=== PATIENT | male | born 1955 | race Caucasian/White ===

== ENCOUNTER 2024-04-28 06:55 | Observation (INO) ==
--- NOTE | 2024-03-24 15:48 | PAT Medication Instructions ---
Medication Instructions Date of Service March 24, 2024 Home Medications alfuzosin 10 mg tablet,extended release 24 hr 10 mg PO HS allopurinol 300 mg tablet 300 mg PO QAM amino acids (Amino Acid capsule) 1 cap PO UD aspirin 81 mg tablet,delayed release 81 mg PO Q2D calcium carbonate 1,000 mg PO QAM capsaicin 0.035 % topical cream 1 applic topical TID PRN joint pain carboxymethylcellulose sodium 1 % eye liquid gel drops (Refresh Liquigel) 1 drp ophthalmic (eye) UD PRN Dry Eyes cholecalciferol (vitamin D3) 50 mcg (2,000 unit) capsule (Vitamin D3) 50 mcg PO DAILY coQ10 (ubiquinol) 100 mg capsule 100 mg PO DAILY docusate sodium 100 mg capsule 200 mg PO BID PRN Constipation doxepin 50 mg capsule 50 mg PO HS fluocinonide 0.05 % topical cream 1 applic topical UD PRN waistline rash fluticasone propionate 50 mcg/actuation nasal spray,suspension 1 spray intranasal BID ketotifen fumarate 0.025 % (0.035 %) eye drops 1 drp ophthalmic (eye) DAILY lidocaine 5 % topical patch 1 patch topical HS PRN joint pain lorazepam 0.5 mg tablet 0.5 - 1 mg PO BID meloxicam 15 mg tablet 15 mg PO QAM omeprazole 20 mg tablet,delayed release 20 mg PO HS pravastatin 40 mg tablet 40 mg PO HS riboflavin (vitamin B2) 100 mg tablet (Vitamin B-2) 100 mg PO DAILY sildenafil 100 mg tablet 100 mg PO DAILY PRN Erectile Dysfunction verapamil 180 mg tablet,extended release 180 mg PO BID vit C 250 mg-vit E 90 mg-zinc 40 mg-copper 1 [id number]-saktqn-hzxqex capsule (PreserVision AREDS-2) 2 tab PO DAILY Continue as directed lidocaine 5 % topical patch 1 patch topical HS PRN joint pain (avoid placement near surgery site prior to surgery) ASK your surgeon for instructions meloxicam 15 mg tablet 15 mg PO QAM amino acids (Amino Acid capsule) 1 cap PO UD ASK your prescriber and surgeon aspirin 81 mg tablet,delayed release 81 mg PO Q2D STOP taking 2 weeks before surgery (or as soon as possible if surgery is within 2 weeks) coQ10 (ubiquinol) 100 mg capsule 100 mg PO DAILY vit C 250 mg-vit E 90 mg-zinc 40 mg-copper 1 po-fgnkkb-cypwfa capsule (PreserVision AREDS-2) 2 tab PO DAILY STOP taking 24 hours before surgery capsaicin 0.035 % topical cream 1 applic topical TID PRN joint pain fluocinonide 0.05 % topical cream 1 applic topical UD PRN waistline rash DO NOT take the morning of surgery calcium carbonate 1,000 mg PO QAM cholecalciferol (vitamin D3) 50 mcg (2,000 unit) capsule (Vitamin D3) 50 mcg PO DAILY docusate sodium 100 mg capsule 200 mg PO BID PRN Constipation riboflavin (vitamin B2) 100 mg tablet (Vitamin B-2) 100 mg PO DAILY sildenafil 100 mg tablet 100 mg PO DAILY PRN Erectile Dysfunction Take morning of surgery With a small sip of water, OTHERWISE NOTHING TO EAT OR DRINK AFTER MIDNIGHT: allopurinol 300 mg tablet 300 mg PO QAM carboxymethylcellulose sodium 1 % eye liquid gel drops (Refresh Liquigel) 1 drp ophthalmic (eye) UD PRN Dry Eyes (if needed) fluticasone propionate 50 mcg/actuation nasal spray,suspension 1 spray intranasal BID ketotifen fumarate 0.025 % (0.035 %) eye drops 1 drp ophthalmic (eye) DAILY lorazepam 0.5 mg tablet 0.5 - 1 mg PO BID verapamil 180 mg tablet,extended release 180 mg PO BID Take evening before surgery alfuzosin 10 mg tablet,extended release 24 hr 10 mg PO HS carboxymethylcellulose sodium 1 % eye liquid gel drops (Refresh Liquigel) 1 drp ophthalmic (eye) UD PRN Dry Eyes (if needed) docusate sodium 100 mg capsule 200 mg PO BID PRN Constipation (if needed) doxepin 50 mg capsule 50 mg PO HS fluticasone propionate 50 mcg/actuation nasal spray,suspension 1 spray intranasal BID lorazepam 0.5 mg tablet 0.5 - 1 mg PO BID omeprazole 20 mg tablet,delayed release 20 mg PO HS pravastatin 40 mg tablet 40 mg PO HS verapamil 180 mg tablet,extended release 180 mg PO BID Other Notes If you have any questions please call us at [phone] or [phone] or [phone] or [phone]
--- NOTE | 2024-04-03 11:15 | Anesthesiology Consultation ---
Date of Service April 03, 2024 Assessment & Plan (1) Encounter for pre-operative examination: - spinal cord stimulator: patient aware to bring remote to hospital DOS. - Outpatient joint assessment: Patient is currently scheduled for inpatient pathway. If re-evaluated and patient/surgeon requests outpatient pathway, patient is not advised candidate for outpatient joint program per discussion with Dr. Carreon. We discussed case in detail and he advised patient is acceptable to proceed, advised faxing CXR to PCP for continuity of care. Chart Review Chart Review: Acceptable Risk for Surgery and Patient seen in Pre Admission Kendra ting Teaching & Discussion Pre-Anesthesia Teaching/Discussion Notes: Instructed NPO after midnight before surgery, except medications with 15 cc of water. Medication instructions provided according to the PAT guidelines. History Surgery Operation Date: 04/28/24 08:50 Proposed Procedures p Left Total Hip Arthroplasty - Kofi Tanner MD Height/Weight Height: 6 ft Weight: 100.8 kg Allergies Allergy/AdvReac Type Severity Reaction Status Date / Time buspirone AdvReac Mild ERECTILE Verified 03/24/24 11:03 DYSFUNCTION baclofen AdvReac Unknown Vomiting Verified 03/24/24 11:03 citalopram AdvReac Unknown erectile Verified 03/24/24 11:03 dysfuntion Medications Home Medications Medication Instructions Recorded Confirmed Last Taken alfuzosin 10 mg tablet,extended 10 mg PO HS 03/24/24 03/24/24 Unknown release 24 hr allopurinol 300 mg tablet 300 mg PO QAM 03/24/24 03/24/24 Unknown amino acids (Amino Acid capsule) 1 cap PO UD 03/24/24 03/24/24 Unknown aspirin 81 mg tablet,delayed 81 mg PO Q2D 03/24/24 03/24/24 Unknown release calcium carbonate 1,000 mg PO QAM 03/24/24 03/24/24 Unknown capsaicin 0.035 % topical cream 1 applic topical TID PRN joint pain 03/24/24 03/24/24 Unknown carboxymethylcellulose sodium 1 % 1 drp ophthalmic (eye) UD PRN Dry 03/24/24 03/24/24 Unknown eye liquid gel drops (Refresh Eyes Liquigel) cholecalciferol (vitamin D3) 50 50 mcg PO DAILY 03/24/24 03/24/24 Unknown mcg (2,000 unit) capsule (Vitamin D3) coQ10 (ubiquinol) 100 mg capsule 100 mg PO DAILY 03/24/24 03/24/24 Unknown docusate sodium 100 mg capsule 200 mg PO BID PRN Constipation 03/24/24 03/24/24 Unknown doxepin 50 mg capsule 50 mg PO HS 03/24/24 03/24/24 Unknown fluocinonide 0.05 % topical cream 1 applic topical UD PRN waistline 03/24/24 03/24/24 Unknown rash fluticasone propionate 50 1 spray intranasal BID 03/24/24 03/24/24 Unknown mcg/actuation nasal spray,suspension ketotifen fumarate 0.025 % (0.035 1 drp ophthalmic (eye) DAILY 03/24/24 03/24/24 Unknown %) eye drops lidocaine 5 % topical patch 1 patch topical HS PRN joint pain 03/24/24 03/24/24 Unknown lorazepam 0.5 mg tablet 0.5 - 1 mg PO BID 03/24/24 03/24/24 Unknown meloxicam 15 mg tablet 15 mg PO QAM 03/24/24 03/24/24 Unknown omeprazole 20 mg tablet,delayed 20 mg PO HS 03/24/24 03/24/24 Unknown release pravastatin 40 mg tablet 40 mg PO HS 03/24/24 03/24/24 Unknown riboflavin (vitamin B2) 100 mg 100 mg PO DAILY 03/24/24 03/24/24 Unknown tablet (Vitamin B-2) sildenafil 100 mg tablet 100 mg PO DAILY PRN Erectile 03/24/24 03/24/24 Unknown Dysfunction verapamil 180 mg tablet,extended 180 mg PO BID 03/24/24 03/24/24 Unknown release vit C 250 mg-vit E 90 mg-zinc 40 2 tab PO DAILY 03/24/24 03/24/24 Unknown mg-copper 1 ej-bomozo-saceas capsule (PreserVision AREDS-2) Past Medical History Medical History (Updated 04/06/24 @ 08:45 by Krysta Okeefe PA-C) Anxiety DDD (degenerative disc disease), lumbar Enlarged prostate GERD (gastroesophageal reflux disease) controlled, stable per pt Glaucoma borderline per patient and his Hearing loss hearing aids bilat High urine uric acid level hx-h/o kidney stones; denies h/o gout History of cluster headache History of colon polyps History of COVID-19 (2020) hx covid pneumonia, no hx hospitalization-symptoms resolved History of depression History of kidney stones (2019) History of syncope (2016) no findings upon testing and no further occurrences. attributed to orthostatic hypotension per patient HTN (hypertension) controlled, stable per pt Hyperlipidemia borderline Macular degeneration borderline Osteoarthritis Spinal stenosis Tinnitus of both ears Patient denies h/o stroke, seizures, heart attack, heart failure, DM, blood clots/DVTs or blood transfusions. Exercise / Class Metabolic Activity II 4-5 Yardwork/Stairs/Walk up hill (ambulates with cane, denies chest discomfort or shortness of breath with one flight of stairs) Past Surgical History Surgical History History of cardiac cath approx 1998 for [facility] [place]. [facility]. No findings/no stent(s). Pt reports he was told: anxiety and angina. No problems since. History of hemorrhoidectomy History of left cataract surgery History of lithotripsy History of right cataract surgery History of testicular surgery (11/2007) took part of it off History of urologic surgery for kidney stone. S/P insertion of spinal cord stimulator (03/11/19) Malhotra 01/17/2022 hx generator change. Past Anesthesia History No Hx of Anesthesia Complications and No Family Hx of Anesthesia Complications History of PONV No Hx of PONV and No Hx of Motion Sickness Social History Smoking Status: Never smoker Do You Dip or Chew Tobacco: No (hx quit 5.5 yr ago-using alternative corn syrup and peach juice-advised) Alcohol type: beer, wine and hard liquor alcohol intake frequency: 3 or more drinks per day Hx Substance Use: No substance use type: does not use Review of Systems Snoring, denies witnessed apneas. Reports negative sleep study several years ago. Patient denies chest pain, shortness of breath, dyspnea on exertion, reflux, fever, chills, cough, wheezing, or palpitations. Physical Exam Vital Signs Vitals BP 145/80 P 66 TEMP 98.1 SP02 94% on RA RESP 18 Physical Patient resting comfortably in chair in no acute distress, alert and oriented, responding appropriately throughout visit Full cervical extension range of motion without pain TMD 3.5 finger breadths Mallampati Score 2 Dentition: edentulous, full upper and lower dentures Lungs: normal respiratory effort. Good air movement, clear throughout to auscultation, no adventitious breath sounds Cardiac: regular rate and rhythm, no murmurs noted Carotid arteries: negative bruit bilat Lab Results Anesthesia Preop Results Results Anesthesia Widget: WBC 5.84 K/ul (4.8-10.8) 04/03/24 Hgb 14.5 g/dl (14.0-18.0) 04/03/24 Hct 41.7 % (42.0-52.0) L 04/03/24 Plt 144 K/uL (130-400) 04/03/24 Na 140 mmol/L (136-145) 04/03/24 K 4.0 mmol/L (3.5-5.1) 04/03/24 Cl 107 mmol/L (98-107) 04/03/24 CO2 27 mmol/L (21-32) 04/03/24 BUN 16 mg/dl (6-23) 04/03/24 Creat 1.04 mg/dl (0.6-1.4) 04/03/24 Glucose Level 102 mg/dl (70-99(Fasting)) H 04/03/24 PT 10.8 Seconds (9.0-12.0) 04/03/24 PTT 25 Seconds (21-31) 04/03/24 INR 1.0 (0.9-1.1) 04/03/24 Blood Type A Positive 04/03/24 Antibody Screen NEGATIVE 04/03/24 Testing Electrocardiogram Date: 04/03/24 NSR, rate 66 bpm Chest X-Ray Date: 04/03/24 1. Mildly hyperinflated lung quinonez are seen bilaterally, suggestive of COPD. 2. Mild bilateral lower lung zone interstitial lung shadowing, more on the right side, concerning mild/early interstitial lung diseases. HRCT correlation is suggested. 3. No definite consolidation or pleural effusion is seen. 4. Mild degenerative changes in the thoracic spine.
--- NOTE | 2024-04-24 17:30 | History & Physical Report ---
Date of Service April 24, 2024 Assessment & Plan (1) Bilateral hip joint arthritis: Gentleman with a long history of back problems with advanced bilateral hip arthritis. Certainly this explains some of his pain but he is got significant pain from his back as well. At that is a bit more difficult problem to manage. That he is got a dorsal column stimulator in place. He would like to have both of his hips fixed. Plan we talked about treatment options. We can proceed with left total hip replacement. The risks Mente this procedure explained and he understands. Informed consent is obtained. Will use aspirin for DVT prophylaxis. Want to be careful to avoid his dorsal column stimulator wires on the left side. He is cleared to be discharged home using [facility] health program. (2) Lumbar spondylosis: (3) Spinal stenosis: (4) Hyperlipidemia: (5) HTN (hypertension): (6) GERD (gastroesophageal reflux disease): History of Present Illness Chief Complaint: . Bilateral hip pain left side greater than right. Primary Care Provider: NO PCP . 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 He comes specifically surgical treatment of his hips. Got a long history of back Pozniak has a dorsal column pain stimulator in place. Over the years she increased pain discomfort both hips. This is gotten significantly worse over the past 2 years she describes buttock pain lateral hip pain groin pain thigh pain. He has been using a cane to get around for the past year. He uses Mobic which did not help much. He is now referred here for surgical treatment. The left left side bothers him more than the right. Allergies Allergy/AdvReac Type Severity Reaction Status Date / Time buspirone AdvReac Mild ERECTILE Verified 03/24/24 11:03 DYSFUNCTION baclofen AdvReac Unknown Vomiting Verified 03/24/24 11:03 citalopram AdvReac Unknown erectile Verified 03/24/24 11:03 dysfuntion Home Medications Medication Instructions Recorded Confirmed Type alfuzosin 10 mg tablet,extended 10 mg PO HS 03/24/24 03/24/24 History release 24 hr allopurinol 300 mg tablet 300 mg PO QAM 03/24/24 03/24/24 History amino acids (Amino Acid capsule) 1 cap PO UD 03/24/24 03/24/24 History aspirin 81 mg tablet,delayed 81 mg PO Q2D 03/24/24 03/24/24 History release calcium carbonate 1,000 mg PO QAM 03/24/24 03/24/24 History capsaicin 0.035 % topical cream 1 applic topical TID PRN joint pain 03/24/24 03/24/24 History carboxymethylcellulose sodium 1 % 1 drp ophthalmic (eye) UD PRN Dry 03/24/24 03/24/24 History eye liquid gel drops (Refresh Eyes Liquigel) cholecalciferol (vitamin D3) 50 50 mcg PO DAILY 03/24/24 03/24/24 History mcg (2,000 unit) capsule (Vitamin D3) coQ10 (ubiquinol) 100 mg capsule 100 mg PO DAILY 03/24/24 03/24/24 History docusate sodium 100 mg capsule 200 mg PO BID PRN Constipation 03/24/24 03/24/24 History doxepin 50 mg capsule 50 mg PO HS 03/24/24 03/24/24 History fluocinonide 0.05 % topical cream 1 applic topical UD PRN waistline 03/24/24 03/24/24 History rash fluticasone propionate 50 1 spray intranasal BID 03/24/24 03/24/24 History mcg/actuation nasal spray,suspension ketotifen fumarate 0.025 % (0.035 1 drp ophthalmic (eye) DAILY 03/24/24 03/24/24 History %) eye drops lidocaine 5 % topical patch 1 patch topical HS PRN joint pain 03/24/24 03/24/24 History lorazepam 0.5 mg tablet 0.5 - 1 mg PO BID 03/24/24 03/24/24 History meloxicam 15 mg tablet 15 mg PO QAM 03/24/24 03/24/24 History omeprazole 20 mg tablet,delayed 20 mg PO HS 03/24/24 03/24/24 History release pravastatin 40 mg tablet 40 mg PO HS 03/24/24 03/24/24 History riboflavin (vitamin B2) 100 mg 100 mg PO DAILY 03/24/24 03/24/24 History tablet (Vitamin B-2) sildenafil 100 mg tablet 100 mg PO DAILY PRN Erectile 03/24/24 03/24/24 History Dysfunction verapamil 180 mg tablet,extended 180 mg PO BID 03/24/24 03/24/24 History release vit C 250 mg-vit E 90 mg-zinc 40 2 tab PO DAILY 03/24/24 03/24/24 History mg-copper 1 ya-yoduen-uasucf capsule (PreserVision AREDS-2) Past Med/Surg History Problem List (Updated 04/24/24 @ 17:29 by Kofi Tanner MD) Lumbar spondylosis Encounter for pre-operative examination Bilateral hip joint arthritis Medical History Tinnitus of both ears Hearing loss hearing aids bilat Glaucoma borderline per patient and his History of syncope (2015) no findings upon testing and no further occurrences. attributed to orthostatic hypotension per patient History of kidney stones (2018) Spinal stenosis DDD (degenerative disc disease), lumbar Osteoarthritis History of depression Anxiety History of COVID-19 (2020) hx covid pneumonia, no hx hospitalization-symptoms resolved Enlarged prostate High urine uric acid level hx-h/o kidney stones; denies h/o gout History of colon polyps GERD (gastroesophageal reflux disease) controlled, stable per pt History of cluster headache Macular degeneration borderline Hyperlipidemia borderline HTN (hypertension) controlled, stable per pt Surgical History History of left cataract surgery History of right cataract surgery History of cardiac cath approx 1998 for [facility]. No findings/no stent(s). Pt reports he was told: anxiety and angina. No problems since. History of hemorrhoidectomy History of testicular surgery (11/2007) took part of it off History of urologic surgery for kidney stone. History of lithotripsy S/P insertion of spinal cord stimulator (03/11/19) Malhotra 01/17/2022 hx generator change. Social History Smoking Status: Never smoker Tobacco Type: Smokeless Tobacco (Dip or Chew) Do You Dip or Chew Tobacco: No (hx quit 5.5 yr ago-using alternative corn syrup and peach juice-advised); Hx Substance Use: No Preferred Language: Kosovan Communication Ability: Effective Hospitality Job Titles Required: No Beliefs That Will Affect Care: None Current Living Situation: Spouse Feels Safe at Home: Yes Assistive Devices: Cane, Denture - Upper, Denture - Lower, Hearing Aid - Bilateral and Other Assistive Devices Comment: spinal cord stimulator, instructed to bring remote day of pat and surgery. Review of Systems All systems reviewed & are unremarkable except as noted in HPI & below. Physical Exam . Physical examination reveals a thin healthy-appearing male. Examination of both hips reveal patient walks the use of a cane. Leg lengths are pretty equal. Does have pain and stiffness of any type of hip motion more the left than the right. He can internally rotate to neutral on both sides. No knee effusion. He is neurologically intact. Constitutional WD/WN, vitals as above Neck trachea midline, no thyromegaly Respiratory normal respiratory effort, lungs clear to auscultation Cardiovascular RRR, no murmur, no edema Gastrointestinal (Abdomen) normal bowel sounds, soft, nontender, no hepatosplenomegaly Results & Data Results & Data Laboratory Results . Diagnostic Findings . X-rays of both hips were reviewed. Shows a moderate to advanced hip arthritis. Got fairly concentric disease on both sides. Is got some superior joint space but is got central disease as well. Both hips are pretty equal. He is got a dorsal column stimulator in place. PG Care Time/CCT Total # of Minutes Spent Total Time Spent with Patient: Total time spent is greater than 50% in coordination of care (as documented) at patient's floor/unit and/or counseling patient: Coding Level of Care Code None Diagnoses Bilateral hip joint arthritis M16.0 Lumbar spondylosis M47.816 Spinal stenosis M48.00 Hyperlipidemia E78.5 HTN (hypertension) I10 GERD (gastroesophageal reflux disease) K21.9
[~2024-04-28 06:55] MED LIST: BUPIVACAINE 0.5 % 5 MG/1 ML PF 10ML VIAL ONE
--- NOTE | 2024-04-28 06:57 | History & Physical Bridge Note ---
Date of Service April 28, 2024 History & Physical Bridge Note I have examined the patient, reviewed the History & Physical and in the interval since the performance of the History & Physical I have noted the following changes of clinical significance: no changes noted
[2024-04-28] MEDS: ACETAMINOPHEN 500 MG TAB PO SCH ×2 (07:20→14:44)
[2024-04-28] MEDS: CeleBREX 200 MG CAP PO SCH (07:20)
[2024-04-28] MEDS: LR 500ML BOLUS, THEN 15ML/HR IV SCH (07:20)
[2024-04-28] MEDS: dexAMETHasone**PF** 10 MG/ML VIAL IV SCH (07:21)
[2024-04-28] MEDS: METOCLOPRAMIDE HCL 10 MG TABLET PO SCH (07:21)
[2024-04-28] MEDS: FAMOTIDINE 20 MG TAB PO SCH (07:21)
[2024-04-28] MEDS: LR 60ML/HR IV SCH (07:21)
[2024-04-28] MEDS ORDERED: MIDAZOLAM HCL 1 MG/ML 2ML VIAL ONE (07:37)
[2024-04-28] MEDS ORDERED: LIDOCAINE 2% 2 ML VIAL/AMP(20MG/ML) INFIL ONE (07:38)
[2024-04-28] MEDS ORDERED: ONDANSETRON INJ 2 MG/ML 2 ML VIAL ONE (07:38)
[2024-04-28] MEDS ORDERED: PROPOFOL IV EMULSION 10 MG/ML 20 ML VIAL IV ONE (07:38)
[2024-04-28] MEDS ORDERED: ePHEDrine sulfate 50 MG/ML AMP IV PRN (08:13)
[2024-04-28] MEDS ORDERED: ONDANSETRON INJ 2 MG/ML 2 ML VIAL IV PRN ×2 (08:13→12:21)
[2024-04-28] MEDS ORDERED: ATROPINE SULFATE 0.1 MG/ML 10ML SYR IV PRN (08:13)
[2024-04-28] MEDS ORDERED: fentaNYL citrate PF 100 MCG/2 ML VIAL ONE ×2 (08:36→09:15)
[2024-04-28] MEDS: ceFAZolin 2000MG 2,000 MG/15 ML SYR IV SCH ×2 (08:55→17:18)
[2024-04-28] MEDS ORDERED: ROCURONIUM BROMIDE 10 MG/ML 5 ML VIAL IV ONE (09:17)
[2024-04-28] MEDS ORDERED: HYDROmorphone INJ 2 MG/ML SYR/VIAL ONE (09:31)
[2024-04-28] MEDS: BUPIVACAINE/EPINEPHRINE 0.5% MPF 1:200,000 30 ML VIAL ONE (10:02)
--- NOTE | 2024-04-28 10:35 | Operative Report ---
PG Post Operative Report Pre & Post Diagnosis Operation Date: 04/28/24 08:50 Pre-Op Diagnosis: Left Hip Osteoarthritis Post-Op Diagnosis: Left Hip Osteoarthritis I identified the patient and participated in the time-out.: Yes Procedure Operation Date: 04/28/24 08:50 Actual Procedures p Left Total Hip Arthroplasty(Left) - Kofi Tanner MD Surgeon Kofi Tanner MD Multiple Drum Sander Daryn Mensah PA-C Estimated Blood Loss 100 Findings Consistent with Post-Op Diagnosis Operative findings were advanced left hip arthritis. He had a very stiff hip with significant small circumferential osteophytes. Moderate-sized joint effusion. He had grade 4 [id number] disease of the femoral head and acetabulum. Intraoperative findings were significantly worse than radiographic images. Specimens Left femoral head sent for pathology. Anesthesia Type General Complications none Disposition Accompanied Patient To Recovery: No Indications Patient is a 69-year-old gentleman with a long history of chronic back problems. He is also developed pain discomfort and stiffness in both hips. Is been through extensive conservative care which became less successful over time. He had a recent dorsal column stimulator placed but continued be bothered by hip pain and stiffness. X-rays show moderate arthritis but fairly concentric. Patient elected seed with left total hip arthroplasty. Description of Procedure Operative implants consist of: 1 Biomet G7 size 58 mm acetabular shell. 2. 6.5 cancellous acetabular screws 1 of 35 mm length and 1 of 30 mm length. 3. [place] hole program production specialist. 4. Highly cross-linked polyethylene liner with 58 mm outer diameter, 40 mm diameter with a keys placed inferior and posterior. 5. [place] size 12 KLA femoral stem. 6. +5/40 mm ceramic articular ball. The patient was taken to the op room, identified, placed on the operating table in the supine position. All contact areas were appropriately padded. IV antibiotics fibra anesthesia team. A general anesthetic was implemented as he had this recent dorsal column stimulator placed. The patient was then placed in the right lateral decubitus position. An axillary roll was placed. A stool Birkett position was used for positioning. The left hip and leg were then prepped and draped in usual sterile fashion. A posterolateral approach to the left hip was then performed to a curvilinear incision centered over the greater trochanter. Sharp dissection Through subcutaneous tissue dental of the IT band gluteal fascia. The IT band gluteal fascia incised longitudinally in line with skin incision. The underlying greater bursa was excised. The piriformis and extra rotators along with the posterior joint capsule then released from the posterior aspect of the hip as a single layer. The hip was internally rotated and dislocated. A femoral neck osteotomy cut was made with a Final Cut about 12 mm above the lesser trochanter. Femoral head was removed and sent for pathology. The femur was retracted anteriorly. Attention drawn the acetabulum. The acetabular labrum was excised it was fairly ossified. The pulmonary fat was excised. Sequential reaming the acetabular was then performed again with a size 47 and progressing up to a 57. I then reamed a little bit to 58 reamer and placed a 58 mm Biomet acetabular shell in about 40 degrees lateral opening and 20 degrees of anteversion. It was fixed with two 6.5 screws. Some small osteophytes removed. A trial liner was placed. Attention drawn the femur. The proximal femur was entered with cookie-cutter followed by canal finder. I then broached beginning the size 8 and progressing up to 12 we got excellent fitted to 12. We trialed the hip and the +5 articular ball provided full stability. Leg lengths appear equal. I did elect to place a keys inferior and posterior backslide his stability due to his underlying spine issues. We elect to place his implants. All trial implants were removed. An apex hole program production specialist was placed. Highly cross-linked polyethylene liner with a keys placed inferior and posterior was placed. A size 12 KLA femoral stem was impacted in position. A +5/40 mm ceramic articular ball was placed. Hip was located and once again found to be stable. Attention drawn toward closing. The wound was irrigated extensively. We did use a Betadine soak. I injected locally with 60 cc of half percent Marcaine with epinephrine. The posterior capsule and external rotators were then repaired through drill holes in the posterior trochanter with #2 Tycron suture. The IT band gluteal fascia then closed #1 PDS suture running fashion to subcutaneous tissue then closed with 2 layers of the deep layer #1 Vicryl suture in the subcutaneous tissues with 2-0 Dexon suture in a buried interrupted fashion the skin was closed with skin marisa. Leg was then cleaned and dried and a sterile dressing with Xeroform, 4 fours, ABD pad and foam tape was applied. Patient then brought out of general anesthesia and transferred to the recovery room in stable condition. Patient tolerated procedure well and there were no complications. Daryn Mensah, my physician operations administrative assistant, was present for the entire procedure. His assistance was essential and required for appropriate patient positioning, prepping and draping, surgical exposure, performing the technical details of the operation, placement the implants, closure of the wound, and placement of the sterile bandage. I attest to the content of the Intraoperative Record and any orders documented therein. Any exceptions are noted below.
--- NOTE | 2024-04-28 10:51 | XRay Report ---
XR hip 1V LT w pelvis CLINICAL HISTORY: IN PACU - Post Surgical COMPARISON: None FINDINGS: Left hip prosthesis shows no hardware complication. There is expected soft tissue gas. Ski n marisa are present laterally. There are severe degenerative changes at the right hip. IMPRESSION: Unremarkable postoperative exam. ACT 112: Negative or not required by law. Electronically signed by: Tobin Rene M.D. 04/28/2024 10:49 AM
[2024-04-28] MEDS: fentaNYL citrate PF 100 MCG/2 ML VIAL IV PRN (10:55)
[2024-04-28] MEDS ORDERED: TAMSULOSIN HCL 0.4 MG CAP PO PRN (12:21)
[2024-04-28] MEDS ORDERED: NON-FORMULARY MEDICATION (Amino Acids [Amino Acid] Capsule) PO SCH (12:21)
[2024-04-28] MEDS ORDERED: LIDOCAINE 5% 1 PATCH TD PRN (12:21)
[2024-04-28] MEDS ORDERED: DOCUSATE SODIUM 100 MG CAP PO PRN (12:21)
[2024-04-28] MEDS ORDERED: HYDROmorphone INJ 0.5 MG/0.5 ML SYR IV PRN (12:21)
[2024-04-28] MEDS ORDERED: MAGNESIUM HYDROXIDE SUSP 30 ML UDC PO PRN (12:21)
[2024-04-28] MEDS ORDERED: NON-FORMULARY MEDICATION (Sildenafil 100 mg Tablet) PO PRN (12:21)
[2024-04-28] MEDS ORDERED: METOCLOPRAMIDE HCL INJ 5 MG/ML 2 ML VIAL IV PRN (12:21)
[2024-04-28] MEDS ORDERED: ALUMINUM/MAGNESIUM SUSP 30 ML UDC PO PRN (12:21)
[2024-04-28] MEDS ORDERED: NALOXONE HCL 0.4 MG/1 ML VIAL/CARP IV PRN (12:21)
[2024-04-28] MEDS ORDERED: bisacodyL 10 MG SUPP PR PRN (12:21)
[2024-04-28] MEDS: TRANEXAMIC ACID 1,000 MG **IV Pre-op IV SCH (12:25)
--- NOTE | 2024-04-28 13:02 | Anesthesiology Progress Note ---
Date of Service April 28, 2024 Anesthesia Post Procedure Vital Signs Vital Signs: Temp Pulse Pulse Resp BP Pulse Ox O2 Del Method 04/28/24 12:10 37.0 C 73 16 157/79 H 96 Nasal Cannula 04/28/24 11:55 70 16 147/79 H 95 Room Air 04/28/24 11:40 80 16 147/80 H 95 Room Air 04/28/24 11:25 73 13 153/83 H 95 Room Air 04/28/24 11:10 72 12 157/86 H 94 Room Air 04/28/24 11:00 71 14 160/78 H 92 Room Air 04/28/24 10:50 36.3 C L 78 14 155/85 H 95 Room Air 04/28/24 10:40 81 22 158/79 H 95 Room Air 04/28/24 10:30 70 12 142/73 H 95 Oxymask 04/28/24 10:22 36.8 C 74 12 146/75 H 96 Oxymask 04/28/24 07:35 36.5 C 75 20 148/92 H 96 Room Air O2 Flow Rate 04/28/24 12:10 2 04/28/24 11:55 04/28/24 11:40 04/28/24 11:25 04/28/24 11:10 04/28/24 11:00 04/28/24 10:50 04/28/24 10:40 04/28/24 10:30 3 04/28/24 10:22 6 04/28/24 07:35 Transfer of Care Handoff Completed per policy Notes Mental Status: alert / awake / arousable and participated in evaluation Patient Amnestic to Procedure: Yes Nausea / Vomiting: adequately controlled Pain: adequately controlled Airway Patency, RR, SpO2: stable & adequate BP & HR: stable & adequate Hydration State: stable & adequate Anesthetic Complications: no major complications apparent and Pt Satisfied with anesthetic care
[2024-04-28] MEDS ORDERED: CAPSAICIN CR 0.075% 60 GM TUBE EXT PRN (13:29)
[2024-04-28] MEDS ORDERED: ARTIFICIAL TEARS OP PRN (13:29)
[2024-04-28] MEDS ORDERED: BETAMETHASONE DIP AUG (DIPROLENE) 0.05% CR 15 GM TUBE EXT PRN (13:32)
[2024-04-28] MEDS ORDERED: LORazepam 0.5 MG TAB PO PRN (13:40)
[2024-04-28] MEDS ORDERED: ACETAMINOPHEN 500 MG TAB PO SCH (14:00)
[2024-04-28] MEDS: KETOROLAC TROMETHAMINE 15 MG/ML VIAL IV SCH (14:44)
[2024-04-28] MEDS: TRANEXAMIC ACID / 0.7% NACL 1,000 MG/100 ML BAG IV SCH (17:18)
[2024-04-28] MEDS: ASCORBIC ACID 500 MG TAB PO SCH (17:18)
[2024-04-28] MEDS: PANTOprazole 40 MG TAB PO SCH (20:06)
[2024-04-28] MEDS: TAMSULOSIN HCL 0.4 MG CAP PO SCH (20:06)
[2024-04-28] MEDS: VERAPAMIL HCL 180 MG TABCR PO SCH (20:06)
[2024-04-28] MEDS: FLUTICASONE PROPIONATE NA SPR 16 GM BTL NAE SCH (20:07)
[2024-04-28] MEDS: DOCUSATE SODIUM 100 MG CAP PO SCH (20:07)
[2024-04-28] MEDS: SENNA 8.6 MG TAB PO SCH (20:07)
[2024-04-28] MEDS: PRAVASTATIN SOD 40 MG TAB PO SCH (20:07)
[2024-04-28] MEDS: DOXEPIN HCL 50 MG CAPSULE PO SCH (20:07)
[2024-04-28] MEDS: LORazepam 0.5 MG TAB PO SCH (20:07)
[2024-04-28] MEDS: ASPIRIN 81 MG ECTAB PO SCH (20:07)
[2024-04-28] MEDS ORDERED: SENNA 8.6 MG TAB PO SCH (21:00)
[2024-04-29] MEDS: traMADol HCL 50 MG TABLET PO PRN (00:16)
[2024-04-29 06:20] LABS: Basophils # (auto) 0.01 K/uL (0.00-0.20); Basophils % (auto) 0.1 %; Hematocrit (blood only) 30.2 % (42.0-52.0); Hemoglobin 10.4 g/dl (14.0-18.0); Immature Granulocytes # (auto) 0.06 K/uL (0.01-0.20); Immature Granulocytes % (auto) 0.6 %; Lymphocytes # (auto) 0.71 K/uL (1.20-3.40); Lymphocytes % (auto) 7.4 %; Mean Corpuscular Hemoglobin 31.8 pg (25.0-34.0); Mean Corpuscular Hgb Conc 34.4 g/dL (32.0-36.0); Mean Corpuscular Volume 92.4 fL (80.0-100.0); Mean Platelet Volume 10.3 fL (9.4-12.4); Monocytes # (auto) 0.84 K/uL (0.11-0.59); Monocytes % (auto) 8.8 %; Neutrophils # (auto) 7.93 K/uL (1.40-6.50); Neutrophils % (auto) 83.1 %; Platelet Count 148 K/uL (130-400); RDW Coefficient of Variation 13.5 % (11.5-14.5); Red Blood Count 3.27 M/uL (4.70-6.10); White Blood Count 9.55 K/ul (4.8-10.8)
[2024-04-29 06:36] LABS: BUN Creatinine Ratio 22.2 (10-20); Calcium 8.6 mg/dl (8.6-10.3); Creatinine Clr Calc Pharmacy 62.6 ml/min
[2024-04-29] MEDS: dexAMETHasone 10 MG in SYRINGE 0 ML IV SCH (07:41)
[2024-04-29] MEDS: CEROVITE ADV FORMULA TAB PO SCH (07:42)
[2024-04-29] MEDS: CALCIUM CARBONATE 1250MG TAB PO SCH (07:42)
[2024-04-29] MEDS: allopurinoL 300 MG TAB PO SCH (07:42)
[2024-04-29] MEDS: CHOLECALCIFEROL 25 MCG (1000 UNITS) TAB PO SCH (07:42)
[2024-04-29] MEDS ORDERED: NON-FORMULARY MEDICATION (Riboflavin (Vitamin B2) [Vitamin B-2] 100 mg Tablet) PO SCH (09:00)
[2024-04-29] MEDS ORDERED: MULTIVITAMIN TAB PO SCH (09:00)
[2024-04-29] MEDS ORDERED: NON-FORMULARY MEDICATION (Coq10 (Ubiquinol) 100 mg Capsule) PO SCH (09:00)
[2024-04-29] MEDS ORDERED: TAMSULOSIN HCL 0.4 MG CAP PO SCH (09:00)
--- NOTE | 2024-04-29 09:28 | Orthopedic Progress Note ---
Date of Service April 29, 2024 Assessment & Plan (1) S/P total left hip arthroplasty: He was seen and examined by Dr. Tanner Pain controlled now. PT/OT wbat, total hip precautions dvt prophylaxis: teds, scd's, aspirin d/c planning: home with home health today after therapy Subjective . 69 year old patient POD 1 from left karen. Had a rough night due to pain but seems improved now. Tachycardic this morning, denies chest pain or shortness of breath. No other complaints. Review of Systems All systems reviewed & are unremarkable except as noted in HPI & below. Physical Exam . alert and oriented. NAD. Heart rate 108 this morning. Otherwise, VSS Left hip: dressing clean, dry, intact. Able to dorsiflex and plantarflex. NVI. Sitting in bedside chair. Results & Data Results & Data Laboratory Results . Diagnostic Findings . PG Care Time/CCT Total # of Minutes Spent Total Time Spent with Patient: Total time spent is greater than 50% in coordination of care (as documented) at patient's floor/unit and/or counseling patient: Coding Level of Care Code 09272 Post Operative Follow-Up Diagnoses S/P total left hip arthroplasty Z96.642
--- NOTE | 2024-05-04 06:34 | Discharge Summary ---
Date of Service May 04, 2024 Admission HPI (Per Admitting) . 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 He comes specifically surgical treatment of his hips. Got a long history of back Pozniak has a dorsal column pain stimulator in place. Over the years she increased pain discomfort both hips. This is gotten significantly worse over the past 2 years she describes buttock pain lateral hip pain groin pain thigh pain. He has been using a cane to get around for the past year. He uses Mobic which did not help much. He is now referred here for surgical treatment. The left left side bothers him more than the right. Admission Exam (Per Admitting) . Physical examination reveals a thin healthy-appearing male. Examination of both hips reveal patient walks the use of a cane. Leg lengths are pretty equal. Does have pain and stiffness of any type of hip motion more the left than the right. He can internally rotate to neutral on both sides. No knee effusion. He is neurologically intact. Principal Diagnosis Same as "Discharge Diagnosis" noted below under Discharge Instructions. Discharge Exam . alert and oriented. NAD. Heart rate 108 this morning. Otherwise, VSS Left hip: dressing clean, dry, intact. Able to dorsiflex and plantarflex. NVI. Sitting in bedside chair. Discharge Data Procedures Performed Operation Date: 04/28/24 08:50 Actual Procedures p Left Total Hip Arthroplasty(Left) - Kofi Tanner MD Hospital Course (1) S/P total left hip arthroplasty: This is a 69 year old patient admitted on 04/28/24 and underwent total hip arthroplasty. He tolerated the procedure well and there were no complications. Transferred to the PACU post op and later to the orthopedic floor for further care. He was given ancef for antibiotic prophylaxis. He was also given RANJIT stockings, SCDs, and aspirin for DVT prophylaxis. Hemoglobin, hematocrit, and vital signs were monitored during his hospital stay and remained stable. Did not require any blood transfusions. There were no complications during his hospital stay. By post op day #1 the patient was tolerating a regular diet, pain was reasonably controlled with oral pain medicine, and he was participating in physical therapy. On post op day #1 the patient was discharged home and set up with home health care. He was given printed discharge instructions including prescriptions for extra strength tylenol, aspirin, zofran, senokot, flomax, and tramadol. Continue hip precautions. Continue physical therapy, weight bearing as tolerated. Continue RANJIT stockings. Follow up approximately 2 weeks post op or sooner if there are problems or concerns. PG Care Time/CCT Total # of Minutes Spent Total Time Spent with Patient: Total time spent is greater than 50% in coordination of care (as documented) at patient's floor/unit and/or counseling patient: Discharge Plan Discharge Items Patient Disposition: Home - Home Health Services Reason For Visit: Left Hip Osteoarthritis Discharge Diagnosis: Left Hip Replacement Activity: Per Instructions section Activity Comment: Follow/Obey hip precautions at all times. Weightbearing: Full weightbearing Weightbearing Comment: Weghtbear as tolerated obeying hip precautions at all times. Non-emergency contact: Surgeon Call non-emergency contact if: you have any medication questions Follow-up/Referrals: PCP,NO [Physician] - Diet: Regular Addtl Attending Provider Instructions: ACTIVITY RECOMMENDATIONS: Diet: * You may resume previous diet. Physical Therapy: * Aggressive physical therapy is not usually needed. You will learn to take care of yourself safely and walk. * Follow the "Hip Precautions Instructions." * In some cases, the social contact worker at the hospital will arrange to have a therapist come to your house for the first couple of weeks to help you learn these skills. * You need to practice on your own or with the help of a family member as needed. * When you learn these skills, most of the therapy can be done on your own. Home Exercise: * You were shown a series of exercises in the hospital. Do these exercises three to four times each day including the exercises you were shown in physical therapy. Walking: * Get up and walk several times each day. For the first four weeks, try not to stand or walk for more than one hour at a time. If you do stand or walk for more than one hour, you will not hurt anything, but your leg will likely swell. * As you feel comfortable, you may change from the walker or crutches to a cane and then to independent walking. MEDICATIONS: New Medicine: * You will likely be taking one or more of these medicines: 1. Tramadol - Take, as directed, when you need it, every six hours to control your pain. 2. Aspirin - Thins your blood to lessen the chance of forming a blood clot. * The most common side effects of pain medicine and iron are nausea and constipation. If nausea or constipation is too much of a problem or if you have any questions about your new medicines or doses, call [facility] at . We will try to help you manage these issues. "VERY IMPORTANT TO READ AND REVIEW" Pain: * The immediate post-operative period after hip replacement surgery is often quite painful. * You are given a prescription for pain medicine. You should take it, as directed, when you need it, especially before physical therapy and before going to bed. Pain that interferes with sleep is very common and can last several months. * You will likely need pain medicine for the first two to four weeks. It will not stop all of the pain. The pain will lessen and as you feel better, you may change to milder pain medicine such as Tylenol. * The most common side effects of pain medicine are nausea and constipation, so don't take more than you need. SPECIAL CARE INSTRUCTIONS: TEDs/Elastic Stockings: * The white elastic stockings help limit swelling and prevent blood clots from forming in your legs. The more you wear them, the more they work. * Wear them for six weeks. Incision Site Care: * Remove dressing postoperative day 2 and then shower. Keep direct shower pressure off the incision site. * After showering, cover marisa with dry gauze and change daily or more frequently if the dressing is getting saturated with drainage. * May completely stop using bandage if wound is dry and no drainage * Pollock are removed between 2 and 3 weeks post-op. If your follow-up appointment is made before 2 weeks, please have your appointment re- scheduled. It is too early to remove the marisa. Prevention of Infection: * Take antibiotics one hour before any dental cleaning, dental work, urological procedure, gastrointestinal procedure or any invasive surgery in order to prevent your new joint from getting infected. * You may get the antibiotics from the doctor performing the procedure or you may call our office at before and we will call in a prescription to the pharmacy of your choice. Things to Watch For: * Drainage from the incision site that occurs more than one week after your surgery. * Severely increased leg pain or swelling. * Increased redness at the incision site. * Fever above 102 degrees Fahrenheit. * Unusual chest pain or shortness of breath. * Unusual pain or burning with urination. Call [facility] at with any of the above problems or if you have any questions about your medicines or recovery. FOLLOW UP VISIT: Make an appointment to see your doctor for approximately two weeks after surgery for a progress check and staple removal by calling the office at . Pending Studies at Discharge: No Stand-Alone Forms: My [facility], Smoking Cessation Medications and DC Order Prescriptions: Continued tramadol 50 mg tablet 50 - 100 mg PO Q6 PRN (Reason: pain) Qty: 40 0RF Rx Instructions: Take as needed for pain ondansetron 4 mg tablet,disintegrating 4 mg PO Q8 PRN (Reason: nausea) Qty: 20 1RF Rx Instructions: Take as needed for nausea sennosides [Senokot] 8.6 mg tablet 8.6 mg PO BID 14 Days Qty: 28 0RF Rx Instructions: Take two times a day to prevent/treat constipation acetaminophen [Tylenol Extra Strength] 500 mg tablet 1,000 mg PO TID 30 Days Qty: 180 0RF Rx Instructions: Take 3 times per day to lessen pain. aspirin [Ede Low Dose Aspirin] 81 mg tablet,delayed release (DR/EC) 81 mg PO BID 45 Days Qty: 90 0RF Rx Instructions: Take to prevent blood clots. tamsulosin [Flomax] 0.4 mg capsule 0.4 mg PO DAILY Qty: 7 0RF Rx Instructions: Begin night BEFORE surgery to prevent urinary retention doxepin 50 mg Capsule 50 mg PO HS ketotifen fumarate 0.025 % (0.035 %) Drops 1 drp OPHTHALMIC (EYE) DAILY Patient Comments: 1 drop each eye daily Rx Instructions: administer at least 8 hours apart aspirin 81 mg Tablet,Delayed Release (Dr/Ec) 81 mg PO Q2D docusate sodium 100 mg Capsule 200 mg PO BID PRN (Reason: Constipation) allopurinol 300 mg Tablet 300 mg PO QAM fluocinonide 0.05 % Cream 1 applic TOPICAL UD PRN (Reason: waistline rash) fluticasone propionate 50 mcg/actuation [place],Suspension 1 spray INTRANASAL BID Rx Instructions: administer into each nostril carboxymethylcellulose sodium [Refresh Liquigel] 1 % Drops, Liquid Gel 1 drp OPHTHALMIC (EYE) UD PRN (Reason: Dry Eyes) alfuzosin 10 mg Tablet Extended Release 24 Hr 10 mg PO HS Rx Instructions: administer after the same meal each day capsaicin 0.035 % Cream 1 applic TOPICAL TID PRN (Reason: joint pain) cholecalciferol (vitamin D3) [Vitamin D3] 50 mcg (2,000 unit) Capsule 50 mcg PO DAILY coQ10 (ubiquinol) 100 mg Capsule 100 mg PO DAILY pravastatin 40 mg Tablet 40 mg PO HS riboflavin (vitamin B2) [Vitamin B-2] 100 mg Tablet 100 mg PO DAILY verapamil 180 mg Tablet Extended Release 180 mg PO BID sildenafil 100 mg Tablet 100 mg PO DAILY PRN (Reason: Erectile Dysfunction) Rx Instructions: administer 30 minutes to 4 hours before activity lorazepam 0.5 mg Tablet 0.5 - 1 mg PO BID Patient Comments: 1 in the morning and 2 at night (0.5 mg each) lidocaine 5 % Adhesive Patch,Medicated 1 patch TOPICAL HS PRN (Reason: joint pain) Rx Instructions: leave on most painful area for up to 12 hrs calcium carbonate 500 mg calcium (1,250 mg) Tablet,Chewable 1,000 mg PO QAM omeprazole 20 mg Tablet,Delayed Release (Dr/Ec) 20 mg PO HS PreserVision AREDS-2 250-90-40-1 mg Capsule 2 tab PO DAILY Amino Acid Capsule 1 cap PO UD Patient Comments: have instructions for pre op and post op use from surgeon Discontinued meloxicam 15 mg Tablet 15 mg PO QAM Admission Data Admit Date/Time: 04/28/24 10:27 Attending Provider: Kofi Tanner Admit Provider: Kofi Tanner Primary Care Provider: Marck Gibbons Other Providers: [facility],Home Health Other Interventions: Discharge Summary Assessment (RN) Last Done: 04/29/24 10:43
== END 2024-04-29 11:52 | disposition home health service (06) ==
LOC: 3E 06:55 → ASU 06:55

== ENCOUNTER 2024-10-16 06:42 | Observation (INO) ==
--- NOTE | 2024-09-30 08:49 | PAT Medication Instructions ---
Medication Instructions Date of Service September 30, 2024 Home Medications alfuzosin 10 mg tablet,extended release 24 hr 10 mg PO HS allopurinol 300 mg tablet 300 mg PO QAM amino acids (Amino Acid capsule) 1 cap PO UD aspirin 81 mg tablet,delayed release 81 mg PO Q2D calcium carbonate 1,000 mg PO QAM capsaicin 0.035 % topical cream 1 applic topical TID PRN carboxymethylcellulose sodium 1 % eye liquid gel drops (Refresh Liquigel) 1 drp ophthalmic (eye) UD PRN cholecalciferol (vitamin D3) 50 mcg (2,000 unit) capsule (Vitamin D3) 50 mcg PO QAM coQ10 (ubiquinol) 100 mg capsule 100 mg PO QAM doxepin 50 mg capsule 50 mg PO HS fluocinonide 0.05 % topical cream 1 applic topical UD PRN fluticasone propionate 50 mcg/actuation nasal spray,suspension 1 spray intranasal BID ketotifen fumarate 0.025 % (0.035 %) eye drops 1 drp ophthalmic (eye) DAILY lidocaine 5 % topical patch 1 patch topical HS PRN lorazepam 0.5 mg tablet 0.5 - 1 mg PO BID omeprazole 20 mg tablet,delayed release 20 mg PO HS pravastatin 40 mg tablet 40 mg PO HS riboflavin (vitamin B2) 100 mg tablet (Vitamin B-2) 100 mg PO QAM sildenafil 100 mg tablet 100 mg PO DAILY PRN verapamil 180 mg tablet,extended release 180 mg PO BID vit C 250 mg-vit E 90 mg-zinc 40 mg-copper 1 [id number]-jdfmyu capsule (PreserVision AREDS-2) 2 tab PO BID sennosides 8.6 mg tablet (senna) 8.6 mg PO BID PRN Continue as directed ketotifen fumarate 0.025 % (0.035 %) eye drops 1 drp ophthalmic (eye) DAILY carboxymethylcellulose sodium 1 % eye liquid gel drops (Refresh Liquigel) 1 drp ophthalmic (eye) UD PRN(if needed) ASK your surgeon for instructions amino acids (Amino Acid capsule) 1 cap PO UD ASK your prescriber and surgeon aspirin 81 mg tablet,delayed release 81 mg PO Q2D lidocaine 5 % topical patch 1 patch topical HS PRN STOP taking 2 weeks before surgery (or as soon as possible if surgery is within 2 weeks) coQ10 (ubiquinol) 100 mg capsule 100 mg PO QAM vit C 250 mg-vit E 90 mg-zinc 40 mg-copper 1 wz-[id number]-qxuvsc capsule (PreserVision AREDS-2) 2 tab PO BID STOP taking 24 hours before surgery capsaicin 0.035 % topical cream 1 applic topical TID PRN fluocinonide 0.05 % topical cream 1 applic topical UD PRN DO NOT take the morning of surgery calcium carbonate 1,000 mg PO QAM cholecalciferol (vitamin D3) 50 mcg (2,000 unit) capsule (Vitamin D3) 50 mcg PO QAM riboflavin (vitamin B2) 100 mg tablet (Vitamin B-2) 100 mg PO QAM sildenafil 100 mg tablet 100 mg PO DAILY PRN sennosides 8.6 mg tablet (senna) 8.6 mg PO BID PRN Take morning of surgery With a small sip of water, OTHERWISE NOTHING TO EAT OR DRINK AFTER MIDNIGHT: allopurinol 300 mg tablet 300 mg PO QAM fluticasone propionate 50 mcg/actuation nasal spray,suspension 1 spray intranasal BID lorazepam 0.5 mg tablet 0.5 - 1 mg PO BID verapamil 180 mg tablet,extended release 180 mg PO BID Take evening before surgery alfuzosin 10 mg tablet,extended release 24 hr 10 mg PO HS doxepin 50 mg capsule 50 mg PO HS fluticasone propionate 50 mcg/actuation nasal spray,suspension 1 spray intranasal BID lorazepam 0.5 mg tablet 0.5 - 1 mg PO BID omeprazole 20 mg tablet,delayed release 20 mg PO HS pravastatin 40 mg tablet 40 mg PO HS verapamil 180 mg tablet,extended release 180 mg PO BID sennosides 8.6 mg tablet (senna) 8.6 mg PO BID PRN(if needed) Other Notes If you have any questions please call us at [phone] or [phone] or [phone] or [phone]
--- NOTE | 2024-10-05 11:41 | Anesthesiology Consultation ---
Date of Service October 05, 2024 Assessment & Plan (1) Encounter for pre-operative examination: - Infectious disease screening: Per assessment on 10/05/24- No known recent infectious disease contacts or current infectious disease symptoms. - Outpatient joint assessment: Pt currently scheduled for inpatient pathway. If surgeon requests review for outpatient joint pathway, patient is an acceptable candidate for outpatient joint program from anesthesia standpoint pending surgeon's office assessment that patient is motivated, has good support and completes [facility] preop requirements. - S/P Left RAMONA (04/28/24): Done under general anesthesia. Per surgeon H&P 04/24/24, "Want to be careful to avoid his dorsal column stimulator wires on the left side." > LMA#5, [facility]. No issues noted per post-op anesthesia progress note. Chart Review Chart Review: Acceptable Risk for Surgery and Patient seen in Pre Admission Testing Teaching & Discussion Pre-Anesthesia Teaching/Discussion Notes: Instructed NPO after midnight before surgery,except medications with 15 cc of water. Medication instructions prov ided according to the PAT guidelines. History Surgery Operation Date: 10/16/24 08:50 Proposed Procedures p Right Total Hip Arthroplasty - Kofi Tanner MD Height/Weight Height: 6 ft Weight: 101.5 kg Allergies Allergy/AdvReac Type Severity Reaction Status Date / Time buspirone AdvReac Mild Erectile Verified 10/16/24 07:09 dysfunction baclofen AdvReac Unknown Vomiting Verified 10/16/24 07:09 citalopram AdvReac Unknown Erectile Verified 10/16/24 07:09 dysfunction Medications Home Medications Medication Instructions Recorded Confirmed Last Taken alfuzosin 10 mg tablet,extended 10 mg PO HS 03/24/24 10/16/24 10/15/24 20:00 release 24 hr allopurinol 300 mg tablet 300 mg PO QAM 03/24/24 10/16/24 10/16/24 03:30 amino acids (Amino Acid capsule) 1 cap PO UD 03/24/24 10/16/24 10/14/24 07:00 aspirin 81 mg tablet,delayed 81 mg PO Q2D 03/24/24 10/16/24 10/15/24 06:00 release calcium carbonate 1,000 mg PO QAM 03/24/24 10/16/24 10/14/24 20:00 capsaicin 0.035 % topical cream 1 applic topical TID PRN joint pain 03/24/24 10/16/24 10/12/24 carboxymethylcellulose sodium 1 % 1 drp ophthalmic (eye) UD PRN Dry 03/24/24 10/16/24 10/15/24 20:00 eye liquid gel drops (Refresh Eyes Liquigel) cholecalciferol (vitamin D3) 50 50 mcg PO QAM 03/24/24 10/16/24 10/15/24 06:00 mcg (2,000 unit) capsule (Vitamin D3) coQ10 (ubiquinol) 100 mg capsule 100 mg PO QAM 03/24/24 10/16/24 10/02/24 doxepin 50 mg capsule 50 mg PO HS 03/24/24 10/16/24 10/15/24 20:00 fluocinonide 0.05 % topical cream 1 applic topical UD PRN waistline 03/24/24 10/16/24 Unknown rash fluticasone propionate 50 1 spray intranasal BID 03/24/24 10/16/24 10/15/24 06:00 mcg/actuation nasal spray,suspension ketotifen fumarate 0.025 % (0.035 1 drp ophthalmic (eye) DAILY 03/24/24 10/16/24 10/16/24 03:30 %) eye drops lidocaine 5 % topical patch 1 patch topical HS PRN Back Pain 03/24/24 10/16/24 10/12/24 20:00 lorazepam 0.5 mg tablet 0.5 - 1 mg PO BID 03/24/24 10/16/24 10/16/24 03:30 omeprazole 20 mg tablet,delayed 20 mg PO HS 03/24/24 10/16/24 10/15/24 20:00 release pravastatin 40 mg tablet 40 mg PO HS 03/24/24 10/16/24 10/15/24 20:00 riboflavin (vitamin B2) 100 mg 100 mg PO QAM 03/24/24 10/16/24 10/15/24 06:00 tablet (Vitamin B-2) sildenafil 100 mg tablet 100 mg PO DAILY PRN Erectile 03/24/24 10/16/24 Unknown Dysfunction verapamil 180 mg tablet,extended 180 mg PO BID 03/24/24 10/16/24 10/16/24 03:30 release vit C 250 mg-vit E 90 mg-zinc 40 2 tab PO BID 03/24/24 10/16/24 10/02/24 mg-copper 1 [id number] capsule (PreserVision AREDS-2) sennosides 8.6 mg tablet (senna) 8.6 mg PO BID PRN Constipation 09/29/24 10/16/24 10/15/24 06:00 acetaminophen 500 mg tablet 1,000 mg (2 x 500 mg) PO TID pain 10/14/24 10/16/24 10/15/24 15:00 (Tylenol Extra Strength) 30 days #180 tabs aspirin 81 mg tablet,delayed 81 mg PO BID 45 days #90 tabs 10/14/24 10/16/24 Unknown release (Ede Low Dose Aspirin) cefadroxil 500 mg capsule 500 mg PO BID 7 days #14 caps 10/14/24 10/16/24 Unknown ketorolac 10 mg tablet 10 mg PO Q6 pain 5 days #20 tabs 10/14/24 10/16/24 Unknown ondansetron 4 mg disintegrating 4 mg PO Q8 PRN nausea #20 tabs 10/14/24 10/16/24 Unknown tablet oxycodone 5 mg tablet 5 - 10 mg (1 - 2 x 5 mg) PO Q6 PRN 10/14/24 10/16/24 Unknown pain #40 tabs sennosides 8.6 mg tablet (Senokot) 8.6 mg PO BID PRN prevent 10/14/24 10/16/24 Unknown constipation 14 days #28 tabs tamsulosin 0.4 mg capsule (Flomax) 0.4 mg PO DAILY #7 caps 10/14/24 10/16/24 10/15/24 20:00 meloxicam 15 mg tablet 15 mg PO DAILY 10/16/24 10/16/24 10/08/24 Active Medications Generic Name Dose Route Start Last Admin Trade Name Freq PRN Reason Stop Dose Admin Acetaminophen 1,000 mg 10/16/24 06:00 10/16/24 07:54 Acetaminophen 500 Mg Tab PO 10/16/24 18:00 1,000 mg PREOP EUGENE Administration Celecoxib 200 mg 10/16/24 06:00 10/16/24 07:55 Celebrex 200 Mg Cap PO 10/16/24 18:00 200 mg PREOP EUGENE Administration Dexamethasone Sodium Phosphate 10 mg 10/16/24 06:00 10/16/24 07:54 DexamethasonePf 10 Mg/Ml Vial IV 10/16/24 18:00 10 mg PREOP EUGENE Administration Famotidine 20 mg 10/16/24 06:00 10/16/24 07:54 Famotidine 20 Mg Tab PO 10/16/24 18:00 20 mg PREOP EUGENE Administration Lactated Ringer's 1,000 mls @ 15 mls/hr 10/16/24 06:00 10/16/24 07:54 Lr IV 10/17/24 05:59 15 mls/hr .Q24H EUGENE Administration Lactated Ringer's 1,000 mls @ 60 mls/hr 10/16/24 06:00 10/16/24 07:54 Lr IV 10/16/24 22:39 Not Given .[id number] EUGENE Metoclopramide HCl 10 mg 10/16/24 06:00 10/16/24 07:55 Metoclopramide Hcl 10 Mg Tablet PO 10/16/24 18:00 10 mg PREOP EUGENE Administration Past Medical History Medical History Anxiety Chronic back pain SCS in place [facility] Neurosurgery DDD (degenerative disc disease), lumbar Enlarged prostate GERD (gastroesophageal reflux disease) Glaucoma Borderline Hearing loss B/L hearing aids High urine uric acid level History of cluster headache History of colon polyps History of COVID-19 (2020) Covid PNA, no hospitalization > resolved History of depression History of kidney stones (2018) History of syncope (2015) Remote hx s/p unremarkable workup Kegley to be r/t orthostatic hypotension No current/recent issues HTN (hypertension) Hyperlipidemia borderline Macular degeneration Borderline Osteoarthritis Spinal stenosis Tinnitus of both ears Exercise / Class Metabolic Activity III < 4 Walking/Shop/Light housework Past Family History Family History Other No family history of adverse response to anesthesia Past Surgical History Surgical History History of cardiac cath ~1998- no stents, no findings per patient History of hemorrhoidectomy History of left cataract surgery History of lithotripsy History of radiofrequency ablation (RFA) of nerve of lumbar spine History of right cataract surgery History of testicular surgery (11/2007) Partial resection History of urologic surgery R/t kidney stone S/P epidural steroid injection S/P insertion of spinal cord stimulator (03/11/19) Malhotra 01/2022 Generator change ([facility]) 06/2024 Generator change ([facility]) Aware to bring remote DOS S/P total left hip arthroplasty Past Anesthesia History No Hx of Anesthesia Complications and No Family Hx of Anesthesia Complications History of PONV No Hx of PONV and No Hx of Motion Sickness Social History Smoking Status: Never smoker Do You Dip or Chew Tobacco: No (Quit 5.5 year ago; using alternative tobacco- free chew > Advised NPO DOS) Hx Alcohol Use: Yes Alcohol type: beer, wine and hard liquor alcohol intake frequency: 0-2 drinks per day (2 beers/day) Hx Substance Use: No substance use type: does not use Review of Systems Patient denies chest pain, shortness of breath, fever, chills, cough, wheezing, palpitations. Physical Exam Vital Signs Last Vital Signs Temp 37.1 C 10/16/24 07:26 Pulse 67 10/16/24 07:26 Resp 20 10/16/24 07:26 BP 136/79 10/16/24 07:26 Pulse Ox 95 10/16/24 07:26 O2 Del Method Room Air 10/16/24 07:26 BP 143/73 P 58 TEMP 97.88 SP02 96%RA RESP 16 Physical Full cervical extension range of motion. Full TMJ range of motion. TMD > 3.5 finger breaths Mallampati Score III Dentition: full upper/lower dentures Lungs: clear throughout to auscultation Cardiac: regular rate and rhythm, no murmurs noted Spine: normal Carotid arteries: negative bruit Extremities: no LE edema Lab Results Anesthesia Preop Results Results Anesthesia Widget: PT 10.8 Seconds (9.0-12.0) 10/05/24 PTT 27 Seconds (21-31) 10/05/24 INR 1.0 (0.9-1.1) 10/05/24 Blood Type A Positive 10/05/24 Antibody Screen NEGATIVE 10/05/24 Testing Laboratory Results 08/26/24 WBC 4.8 H/H 14.0/41.8 PLATELETS 145 SODIUM 140 POTASSIUM 4.0 CHLORIDE 108 CO2 24 BUN 22 CREATININE 1.0 GLUCOSE 89 HGBA1C 5.7% Electrocardiogram Date: 04/03/24 NSR at 66bpm. "Normal ECG" Chest X-Ray Date: 10/05/24 Findings: The lungs are clear. The cardiomediastinal silhouette is within normal limits. No pleural effusion or pneumothorax. The heart size appears normal. No bony or soft tissue abnormality. Intrathecal stimulator device in the thoracic spine. Impression: Normal chest x-ray
--- NOTE | 2024-10-16 07:00 | History & Physical Bridge Note ---
Date of Service October 16, 2024 History & Physical Bridge Note I have examined the patient, reviewed the History & Physical and in the interval since the performance of the History & Physical I have noted the following changes of clinical significance: no changes noted
[2024-10-16] MEDS ORDERED: MIDAZOLAM HCL 1 MG/ML 2ML VIAL ONE (07:44)
[2024-10-16] MEDS ORDERED: ONDANSETRON INJ 2 MG/ML 2 ML VIAL ONE (07:45)
[2024-10-16] MEDS ORDERED: DEXAMETHASONE SOD INJ 4 MG/ML VIAL ONE (07:45)
[2024-10-16] MEDS ORDERED: LIDOCAINE 2% 2 ML VIAL/AMP(20MG/ML) INFIL ONE ×2 (07:45)
[2024-10-16] MEDS ORDERED: PROPOFOL IV EMULSION 10 MG/ML 20 ML VIAL IV ONE ×2 (07:45)
[2024-10-16] MEDS: LR 15ML/HR IV SCH (07:54)
[2024-10-16] MEDS: ACETAMINOPHEN 500 MG TAB PO SCH ×2 (07:54→13:56)
[2024-10-16] MEDS: FAMOTIDINE 20 MG TAB PO SCH (07:54)
[2024-10-16] MEDS: LR 60ML/HR IV SCH (07:54)
[2024-10-16] MEDS: dexAMETHasone**PF** 10 MG/ML VIAL IV SCH (07:54)
[2024-10-16] MEDS: CeleBREX 200 MG CAP PO SCH (07:55)
[2024-10-16] MEDS: METOCLOPRAMIDE HCL 10 MG TABLET PO SCH (07:55)
[2024-10-16] MEDS ORDERED: KETAMINE HCL 10MG/ML SYR ONE (10:10)
[2024-10-16] MEDS: BUPIVACAINE/EPINEPHRINE 0.5% MPF 1:200,000 30 ML VIAL ONE (10:20)
[2024-10-16] MEDS ORDERED: GLYCOPYRROLATE 0.2 MG/ML VIAL ONE (10:21)
[2024-10-16] MEDS ORDERED: HYDROmorphone INJ 2 MG/ML SYR/VIAL ONE (10:31)
--- NOTE | 2024-10-16 11:29 | Operative Report ---
"PG Post Operative Report Pre & Post Diagnosis Operation Date: 10/16/24 08:50 Pre-Op Diagnosis: Right Hip Degenerative Joint Disease Post-Op Diagnosis: Right Hip Degenerative Joint Disease I identified the patient and participated in the time-out.: Yes Procedure Operation Date: 10/16/24 08:50 Actual Procedures p Right Total Hip Arthroplasty, Uncemented(Right) - Kofi Tanner MD Surgeon Kofi Tanner MD House Wrecker Tate Howell PA-C Estimated Blood Loss 100 Findings Consistent with Post-Op Diagnosis Specimens Right femoral head cervical pathology. Complications none Disposition Accompanied Patient To Recovery: No Indications Patient is a 69-year-old gentleman with status of a history of increasing bilateral hip pain discomfort as well as chronic back issues. Has been through extensive conservative treatment became less excessive over time. He had his left hip replaced 6 months ago and is doing remarkably well with this. It did markedly decrease his requirements for pain medicine. That his right hip is even bother him more. He elected proceed with right total hip arthroplasty. Description of Procedure Operative implants consist of: 1 Biomet G7 size 56 mm acetabular shell. 2. 6.5 cancellous acetabular screws 135 mm length of 0.25 mm length. 3. Burnside hole manager location. 4. 56 mm x 40 mm highly cross-linked polyethylene liner. 5. Size 13 KLA Corail femoral stem. 6. +5/40 mm ceramic articular ball. The patient was taken the op room, identified, placed on the operating table in the supine position. All contact areas were properly padded. IV antibiotics by anesthesia team. A general anesthetic was implemented due to his history of chronic back issues and dorsal column stimulator. The patient was then placed in the left lateral decubitus position. An axillary roll was placed. The right hip Silbert positioner was used for positioning. The right hip and leg were then prepped and draped in usual sterile fashion. A posterolateral approach of the right hip was then performed to a curvilinear incision centered over the greater trochanter. Sharp dissection catheter subcutaneous tissue over the IT band gluteal fascia. The IT band gluteal fascia incised longitudinally in line with skin incision. The underlying greater bursa was excised. The piriformis external rotators along with the posterior joint capsule then released in the posterior aspect hip as a single layer. Hip was internally rotated and dislocated. A femoral neck osteotomy cut was made with Final Cut about 12 mm above the lesser trochanter. Femoral head was removed and sent for pathology. The femur was retracted anteriorly. Attention drawn to the acetabulum. The acetabular labrum was excised. The pulmonary fat was excised. Sequential reaming the acetabulum was then performed again with a size 47 and progressing up to a 55. Reamed a little bit with the 56 reamer and then placed a 56 mm Biomet G7 acetabular shell in about 4 degrees lateral opening and 20 degrees of anteversion. It was fixed with two 6.5 screws. Trial liner was placed. Femoral osteophytes particular posteriorly were removed. Attention then drawn the femur. The proximal femur was entered with a cookie-cutter followed by canal finder. I then broached beginning with a size 8 and progressing up to a 13 to get excellent fit of the 13. We trialed the hip in a +5 | provided appropriate soft tissue tension, complete stability and what appeared to be equal leg lengths. We elect to place these implants. All trial implants were removed. A limited was placed good highly cross-linked polyethylene liner was placed. A size 13 KLA femoral stem was impacted in position. A +5/40 mm ceramic articular ball was placed. Hip was located and once again found to be stable. Attention drawn toward closing. Wounds irrigated copious pulsatile lavage solution. I did inject locally with 60 cc of half percent Marcaine with epinephrine. The posterior capsule and external rotators were then repaired through drill holes in the posterior trochanter with #2 Tycron suture. The IT band gluteal fascia were then closed with #1 PDS suture running fashion to subcutaneous tissue then closed in 2 layers with a deep layer #1 Vicryl suture in the subcutaneous tissue with 2-0 Dexon suture in a buried interrupted fashion. Skin was closed with skin marisa. Wound was then cleaned and dried and a sterile dressing with Xeroform, 4 fours, ABD pad and foam tape was applied. Patient then brought out of general anesthesia and transferred to the recovery room in stable condition. The patient tolerated the procedure well and there were no complications. Tate Howell, my physician care management assistant, was present for the entire procedure. His assistance was required for proper patient positioning, prepping and draping, surgical exposure, retraction, performed the technical details of the operation, placement of the implants, closure of the incision site, placement of postoperative sterile bandage. I attest to the content of the Intraoperative Record and any orders documented therein. Any exceptions are noted below."
[2024-10-16] MEDS ORDERED: HYDROmorphone INJ 1 MG/ML SYRINGE IV PRN (11:33)
[2024-10-16] MEDS ORDERED: FLUMAZENIL 0.1 MG/1 ML 10 ML VIAL IV PRN (11:33)
[2024-10-16] MEDS ORDERED: PROMETHAZINE HCL 6.25 MG in SODIUM CHLORIDE 0.9% 50 ML IV PRN (11:33)
[2024-10-16] MEDS ORDERED: ONDANSETRON INJ 2 MG/ML 2 ML VIAL IV PRN ×2 (11:33→12:28)
[2024-10-16] MEDS ORDERED: NALOXONE HCL 0.4 MG/1 ML VIAL/CARP IV PRN ×2 (11:33→12:28)
[2024-10-16] MEDS ORDERED: ATROPINE SULFATE 0.1 MG/ML 10ML SYR IV PRN (11:33)
--- NOTE | 2024-10-16 11:39 | XRay Report ---
XR hip 1V RT w pelvis CLINICAL HISTORY: IN PACU - Post Surgical COMPARISON: 04/28/2024 FINDINGS: Portable AP low pelvis and crosstable lateral views of the right hip demonstrate a total h ip arthroplasty with satisfactory positioning and alignment of the prosthetic components. Postsurgica l changes are noted in the soft tissues. IMPRESSION: Satisfactory postop appearance. ACT 112: Negative or not required by law. Electronically signed by: Suki Piedra M.D. 10/16/2024 11:38 AM
--- NOTE | 2024-10-16 12:07 | Anesthesiology Progress Note ---
Date of Service October 16, 2024 Anesthesia Post Procedure Vital Signs Vital Signs: Temp Pulse Pulse Resp BP Pulse Ox O2 Del Method 10/16/24 12:05 69 21 161/87 H 98 Room Air 10/16/24 11:55 36.7 C 67 19 160/83 H 95 Room Air 10/16/24 11:45 70 13 145/87 H 98 Room Air 10/16/24 11:35 72 13 159/88 H 99 Oxymask 10/16/24 11:25 78 15 141/80 H 100 Oxymask 10/16/24 11:18 36 C L 77 16 144/75 H 98 Oxymask 10/16/24 07:26 37.1 C 67 20 136/79 95 Room Air O2 Flow Rate 10/16/24 12:05 10/16/24 11:55 10/16/24 11:45 10/16/24 11:35 4 10/16/24 11:25 11 10/16/24 11:18 11 10/16/24 07:26 Pain Intensity Right Hip: Pain Intensity: 4 Transfer of Care Handoff Completed per policy Notes Mental Status: alert / awake / arousable Patient Amnestic to Procedure: Yes Nausea / Vomiting: adequately controlled Pain: adequately controlled Airway Patency, RR, SpO2: stable & adequate BP & HR: stable & adequate Hydration State: stable & adequate Anesthetic Complications: no major complications apparent
[2024-10-16] MEDS ORDERED: SENNA 8.6 MG TAB PO PRN ×2 (12:28)
[2024-10-16] MEDS ORDERED: NON-FORMULARY MEDICATION (Sildenafil 100 mg Tablet) PO PRN (12:28)
[2024-10-16] MEDS ORDERED: METOCLOPRAMIDE HCL INJ 5 MG/ML 2 ML VIAL IV PRN (12:28)
[2024-10-16] MEDS ORDERED: MAGNESIUM HYDROXIDE SUSP 30 ML UDC PO PRN (12:28)
[2024-10-16] MEDS ORDERED: NON-FORMULARY MEDICATION (Amino Acids [Amino Acid] Capsule) PO SCH (12:28)
[2024-10-16] MEDS ORDERED: ALUMINUM/MAGNESIUM SUSP 30 ML UDC PO PRN (12:28)
[2024-10-16] MEDS ORDERED: HYDROmorphone INJ 0.5 MG/0.5 ML SYR IV PRN (12:28)
[2024-10-16] MEDS: TRANEXAMIC ACID 1,000 MG **IV Pre-op IV SCH (12:39)
[2024-10-16] MEDS: SODIUM CHLORIDE 0.9% 1,000 ML IV SCH (12:42)
[2024-10-16] MEDS ORDERED: ARTIFICIAL TEARS OP PRN (12:42)
[2024-10-16] MEDS: KETOROLAC TROMETHAMINE 15 MG/ML VIAL IV SCH (12:43)
[2024-10-16] MEDS ORDERED: CAPSAICIN CR 0.075% 60 GM TUBE EXT PRN (12:45)
[2024-10-16] MEDS ORDERED: BETAMETHASONE DIP AUG (DIPROLENE) 0.05% CR 50 GM TUBE EXT PRN (12:51)
[2024-10-16] MEDS ORDERED: ACETAMINOPHEN 500 MG TAB PO SCH (14:00)
[2024-10-16] MEDS: TRANEXAMIC ACID / 0.7% NACL 1,000 MG/100 ML BAG IV SCH (16:55)
[2024-10-16] MEDS: ASCORBIC ACID 500 MG TAB PO SCH (16:55)
[2024-10-16] MEDS ORDERED: NON-FORMULARY MEDICATION (Vit C,E-Zn-Coppr-Lutein-Zeaxan [Preservision Areds-2] 250-90-40- PO SCH (21:00)
[2024-10-16] MEDS ORDERED: LIDOCAINE 5% 1 PATCH TD PRN (21:00)
[2024-10-16] MEDS: DOCUSATE SODIUM 100 MG CAP PO SCH (22:15)
[2024-10-16] MEDS: FLUTICASONE PROPIONATE NA SPR 16 GM BTL NAE SCH (22:16)
[2024-10-16] MEDS: DOXEPIN HCL 50 MG CAPSULE PO SCH (22:16)
[2024-10-16] MEDS: PRAVASTATIN SOD 40 MG TAB PO SCH (22:17)
[2024-10-16] MEDS: ASPIRIN 81 MG ECTAB PO SCH (22:17)
[2024-10-16] MEDS: VERAPAMIL HCL 180 MG TABCR PO SCH (22:18)
[2024-10-16] MEDS: SENNA 8.6 MG TAB PO SCH (22:20)
[2024-10-17 06:16] LABS: Hematocrit (blood only) 37.2 % (42.0-52.0); Hemoglobin 12.3 g/dl (14.0-18.0); Immature Granulocytes # (auto) 0.06 K/uL (0.01-0.20); Immature Granulocytes % (auto) 0.6 %; Mean Corpuscular Hemoglobin 30.4 pg (25.0-34.0); Mean Corpuscular Volume 91.9 fL (80.0-100.0); Platelet Count 164 K/uL (130-400); RDW Standard Deviation 48.1 fL (36.4-46.3); Red Blood Count 4.05 M/uL (4.70-6.10); White Blood Count 10.50 K/ul (4.8-10.8)
[2024-10-17 06:34] LABS: Anion Gap 6.0 (3-11); Blood Urea Nitrogen 26.0 mg/dl (6-23); Calcium 9.4 mg/dl (8.6-10.3); Carbon Dioxide 24.0 mmol/L (21-32); Chloride 106.0 mmol/L (98-107); Creatinine Clr Calc Pharmacy 58.9 ml/min; Glucose 127.0 mg/dl (70-99(Fasting)); Potassium 4.2 mmol/L (3.5-5.1); Sodium 136.0 mmol/L (136-145)
--- NOTE | 2024-10-17 07:11 | Orthopedic Progress Note ---
Date of Service October 17, 2024 Assessment & Plan (1) Status post right hip replacement: Plan: 1: 69-year-old gentleman postop day 1 from a right hip replacement doing well. Pain is controlled. It is located. He is neurologically intact. Plan: DVT prophylaxis including thigh-high teds, SCDs, aspirin twice a day. 2. PT/OT: Weight-bear as tolerated right. Protocol. 3. Pain control. Doing well with current pain regimen. 4. Disposition. Plan is to discharge home with some home health and his 's assistance. Admission and Anticipated Discharge Date Admission Date: October 16, 2024 Subjective 69-year-old gentleman postop day 1 from right hip replacement. He is doing well. Fairly minimal pain. Hoping to go home today. No chest pain or shortness of breath. Not feeling dizzy or lightheaded. Physical Exam Physical Exam: Physical examination is a pleasant middle-aged male. Gieson of his bedside looks pretty comfortable. Examination of the right hip reveals the dressing be clean dry and intact. The thigh is soft and supple. Leg lengths are equal. He can dorsiflex and plantarflex his foot appropriately. He is neurologically intact. Respiratory: normal respiratory effort, lungs clear to auscultation Cardiovascular: RRR, no murmur, no edema Gastrointestinal (Abdomen): normal bowel sounds, soft, nontender, no hepatosplenomegaly Results & Data Vital Signs (Past 12 Hours) Vital Signs Temp Pulse Resp BP Pulse Ox O2 Del Method 10/17/24 04:13 36.7 C 58 L 16 127/66 97 Room Air 10/17/24 00:08 36.6 C 57 L 16 134/74 95 Room Air 10/16/24 19:14 36.6 C 69 16 143/74 H 94 Room Air Laboratory Results Hemoglobin 12.3. Hematocrit 37.2. Electrolytes are stable. Creatinine just slightly elevated at 1.44
[2024-10-17 07:12] VITALS: BP 139/75; PULSE 70; RESP 18; TEMP 97.5; O2SAT 98
[2024-10-17] MEDS: dexAMETHasone 10 MG in SYRINGE 0 ML IV SCH (08:55)
[2024-10-17] MEDS: CHOLECALCIFEROL 25 MCG (1000 UNITS) TAB PO SCH (08:57)
[2024-10-17] MEDS: CALCIUM CARBONATE 500 MG CHEWABLE TAB PO SCH (08:57)
[2024-10-17] MEDS: TAMSULOSIN HCL 0.4 MG CAP PO SCH (08:58)
[2024-10-17] MEDS: MULTIVITAMIN TAB PO SCH (08:58)
[2024-10-17] MEDS ORDERED: NON-FORMULARY MEDICATION (Riboflavin (Vitamin B2) [Vitamin B-2] 100 mg Tablet) PO SCH (09:00)
[2024-10-17] MEDS ORDERED: NON-FORMULARY MEDICATION (Coq10 (Ubiquinol) 100 mg Capsule) PO SCH (09:00)
== END 2024-10-17 13:30 | disposition home health service (06) ==
LOC: ASU 06:42 → 3E 06:42